=== PATIENT | male | born 1975 | race Hispanic/Latino ===

== ENCOUNTER 2017-12-26 20:29 | Emergency (ER) | payer SELFPAY ==
[~2017-12-26 20:29] MED LIST: ISOVUE-370 76%-LOCM 1 ML ONE
[2017-12-26] MEDS ORDERED: Ondansetron ODT 4 MG TAB ONE (21:08)
[2017-12-26] MEDS ORDERED: Lidocaine Viscous Sol 2% 15 ml UD Cup ONE (21:08)
[2017-12-26] MEDS ORDERED: Mag-Al 1200 mg/1200 mg/30 ML UDCUP ONE (21:08)
[2017-12-26] MEDS ORDERED: Famotidine 20 MG TAB ONE (21:08)
[2017-12-26 21:31] LABS: Hemoglobin 15.9 g/dL (14.0-18.0); Mean Corpuscular HGB CONC 34.7 g/dL (32.0-36.0); Mean Platelet Volume 7.5 fL (7.4-10.4); Platelet Count 251 thou/uL (130-400); RBC Distribution Width 12.2 % (11.5-14.5); Red Blood Cell (RBC) Count 4.68 mill/uL (4.70-6.10); White Blood Cell (WBC) Count 18.8 thou/uL (4.8-10.8)
[2017-12-26 21:50] LABS: ALT (SGPT) 24 U/L (8-55); AST (SGOT) 18 U/L (5-34); Albumin 4.7 g/dL (3.5-5.0); Alkaline Phosphatase 101 U/L (40-150); Anion Gap 16 mmol/L (10-20); BUN (Urea Nitrogen) 13 mg/dL (8.9-20.6); Bilirubin, Total 0.8 mg/dL (0.2-1.2); Calc. Creatinine Clearance 0 mL/min (70-130); Calcium 9.7 mg/dL (7.8-10.44); Carbon Dioxide 24 mmol/L (22-29); Chloride 106 mmol/L (98-107); Estimated GFR-MDRD Greater than 90; Globulin 2.9 g/dL (2.4-3.5); Glucose 184 mg/dL (70-105); Lipase Less than 4 U/L (8-78); Protein, Total 7.6 g/dL (6.0-8.3); Sodium 142 mmol/L (136-145)
[2017-12-26 22:09] LABS: Band 1 % (5-11); Lymphocytes 4 % (21-51); MDiff Complete? YES; Monocytes 2 % (0-10); Neutrophil 93 % (42-75)
--- NOTE | 2017-12-26 23:19 | CT ---
CT ABDOMEN AND PELVIS WITH CONTRAST 12/26/17 HISTORY: Abdominal pain after eating spicy foods. COMPARISON: None. FINDINGS: Lung bases are clear. No pericardial effusion. The appendix is visualized and is normal. There is a s mall bowel containing internal hernia with loops of mid small bowel in the right lower quadrant of th e abdomen, likely a chronic finding and not the cause of the patient's pain. No dilated loops of larg e or small bowel. Aortoiliac contour is normal. No acute osseous abnormality. No hydronephrosis. The liver, spleen, and pancreas are unremarkable. No adenopathy. IMPRESSION: Unremarkable exam. Normal appendix. POS: [facility]
[2017-12-26 23:49] LABS: Amphetamine Not Detected (NotDetected); Barbiturates Screen Not Detected (NotDetected); Benzodiazepine Screen Not Detected (NotDetected); Cocaine Metabolite Screen Not Detected (NotDetected); Medtox Control Line Valid? VALID (VALID); Medtox Reader # READER 4; Methadone Not Detected (NotDetected); Methamphetamine Not Detected (NotDetected); Opiate Screen Detected (NotDetected); Oxycodone Screen Not Detected (NotDetected); Phencyclidine (PCP) Not Detected (NotDetected); THC/Cannabinoid Screen Detected (NotDetected); Tricyclic Screen Not Detected (NotDetected)
== END 2017-12-27 00:01 | disposition home or self-care (01) ==
LOC: ERS 20:29
DX: R10.13 Epigastric pain (principal)
CPT/HCPCS: 36415; 74177; 80053; 80306; 83690; 85025; Q0162

== ENCOUNTER 2017-12-29 12:23 | Emergency (ER) | payer SELFPAY ==
[2017-12-29] MEDS ORDERED: Haloperidol Lactate 5 MG/ML VIAL ONE (12:37)
[2017-12-29 12:50] LABS: #Lymphocytes 0.6 thou/uL (1.20-3.40); #Monocytes 0.3 thou/uL (0.11-0.59); #Neutrophils 10.4 thou/uL (1.40-6.50); %Basophils 0.1 % (0.0-1.0); %Eosinophils 0.2 % (0.0-10.0); %Lymphocytes 5.3 % (21.0-51.0); %Monocytes 2.7 % (0.0-10.0); %Neutrophils 91.7 % (42.0-75.0); Hemoglobin 15.8 g/dL (14.0-18.0); Mean Corpuscular HGB CONC 33.7 g/dL (32.0-36.0); Mean Corpuscular Hemoglobin 33.5 pg (27.0-31.0); Mean Corpuscular Volume 99.3 fl (80.0-94.0); Mean Platelet Volume 7.9 fL (7.4-10.4); Platelet Count 217 thou/uL (130-400); Red Blood Cell (RBC) Count 4.71 mill/uL (4.70-6.10); White Blood Cell (WBC) Count 11.3 thou/uL (4.8-10.8)
[2017-12-29 13:23] LABS: ALT (SGPT) 27 U/L (8-55); AST (SGOT) 24 U/L (5-34); Albumin 4.8 g/dL (3.5-5.0); Alkaline Phosphatase 95 U/L (40-150); Anion Gap 14 mmol/L (10-20); BUN (Urea Nitrogen) 11 mg/dL (8.9-20.6); Bilirubin, Total 0.9 mg/dL (0.2-1.2); CKMB 4.8 ng/mL (0-6.6); Calc. Creatinine Clearance 0 mL/min (70-130); Calcium 9.6 mg/dL (7.8-10.44); Carbon Dioxide 25 mmol/L (22-29); Chloride 103 mmol/L (98-107); Estimated GFR-MDRD Greater than 90; Globulin 2.9 g/dL (2.4-3.5); Glucose 149 mg/dL (70-105); Lipase 7 U/L (8-78); Potassium 4.1 mmol/L (3.5-5.1); Protein, Total 7.7 g/dL (6.0-8.3); Sodium 138 mmol/L (136-145); Troponin I Less than 0.010 ng/mL (< 0.028)
--- NOTE | 2017-12-29 13:25 | RAD ---
UPRIGHT PORTABLE CHEST ONE VIEW: HISTORY: A 42-year-old male with a history of a stomach infection, abdominal pain, and chest pain. FINDINGS: Monitor leads overly the chest. Heart size is within normal limits. There is a focal area of minima l increased density over the right upper mid lung zone, overlying the right seventh posterior rib, po ssibly a confluence of shadows, although a small mass or scar or other small focal parenchymal proces s cannot be excluded. The left chest appears clear. IMPRESSION: Small, faint opacity overlying the right upper mid chest. Possibilities include that of summation ar tifact, small mass, scar, or small patch of other parenchymal density. Depending on concern, follow- up chest CT scan might be considered on a nonemergent basis for further assessment. POS: [facility]
== END 2017-12-29 12:47 | disposition home or self-care (01) ==
LOC: ERS 12:23
DX: R11.2 Nausea with vomiting, unspecified (principal); F12.90 Cannabis use, unspecified, uncomplicated
CPT/HCPCS: 71045; 80053; 82553; 83690; 84484; 85025; 93005; 96374; J1630